=== PATIENT | female | born 1995 | race Caucasian/White ===

== ENCOUNTER → 2016-11-14 | Outpatient (CLI) | payer BC | LOC: COL.RAD 12:00 | DX: Z53.9 Procedure and treatment not carried out, unspecified reason (principal) ==

== ENCOUNTER → 2016-11-16 | Outpatient (CLI) | payer BC | LOC: COL.RAD 12:45 | DX: R10.84 Generalized abdominal pain (principal) ==

== ENCOUNTER → 2018-12-04 21:10 | Outpatient (CLI) | payer BC ==
[2018-12-04 20:45] VITALS: BP 115/89; PULSE 122; TEMP 98.7
--- NOTE | 2018-12-04 21:00 | NUR ---
Patient here for Rhogam shot. VSS. Patient's questions asked and answered by RN. IM injection given. See eMAR.
[~2018-12-04 21:10] MED LIST: PRENATAL MVI
== END | disposition home or self-care (01) ==
LOC: LDRO 13:15
DX: Z29.13 Encounter for prophylactic Rho(D) immune globulin (principal); Z3A.00 Weeks of gestation of pregnancy not specified
CPT/HCPCS: J2791